=== PATIENT | male | born 1990 | race Caucasian/White ===

== ENCOUNTER 2020-03-31 19:31 | Emergency (ER) | payer SELFPAY | END 2020-03-31 19:45 | disposition left against medical advice (07) | LOC: EXPCOLL 19:37 | PROVIDERS: Emergency Provider Nurse Practitioner Family | DX: Z53.21 Procedure and treatment not carried out due to patient leaving prior to being seen by health care provider (principal) | CPT/HCPCS: 99199 ==

== ENCOUNTER 2024-10-20 15:59 | Emergency (ER) | payer OTHER, SELFPAY ==
--- OUTSIDE RECORDS SUMMARY | 2024-10-20 16:04 | XMS_ITS | Encounter Summary ---
Author Organization [facility] Care Team Providers Care Shipping Supervisor Name Role Phone Dona Laughlin Primary Care Provider [phone] Keenan Esquivel MD Unavailable [phone] Encounter Details Date Type Department Care Team (Latest Contact Info) Description 07/05/2015 Orders Only [facility] CLINCONV Provider, MD Amanda [address] [place] [id number] Social History Tobacco Use Types Packs/Day Years Used Date Smoking Tobacco: Never Assessed Sex and Gender Information Value Date Recorded Sex Assigned at Not on file Legal Sex Male 10:45 AM CDT Gender Identity Not on file Sexual Orientation Not on file documented as of this encounter Plan of Treatment Not on file documented as of this encounter Procedures Procedure Name Priority Date/Time Associated Diagnosis Comments PROCEDURE - RESULT 07/06/2015 12 :00 AM CDT documented in this encounter Results * PROCEDURE - RESULT (07/06/2015 12:00 AM CDT) Narrative 07/06/2015 12:00 AM CDT Ordered by an unspecified provider. Historical Provider Final Res ult documented in this encounter Visit Diagnoses Not on filedocumented in this encounter Additional Health Concerns Infection Onset Date Last Indicated Resolved Time MRSA 06/30/2015 06/29/2015 10/27/2020 5:00 AM CDT documented as of this encounter Care Teams Shipping Supervisor Relationship Specialty Start Date End Date Dona Laughlin PA [address] [place] [address] PCP - General 06/13/17 Keenan Esquivel MD [address] [facility] [place] [address] Surgeon Orthopedic Surgery 08/22/17 documented as of this encounter
--- OUTSIDE RECORDS SUMMARY | 2024-10-20 16:04 | XMS_ITS | Clinical Summary ---
Author Organization [facility] Address [address] [place] [address] Care Team Providers Care Wildlife Technician Name Role Phone Dona Laughlin Primary Care Provider [phone] Allergies Active Allergy Reactions Criticality Noted Date Comments Thiamine Unknown 03/31/2020 Vitamin B12 Anaphylaxis High 08/11/2017 Medications divalproex EC 125 MG tabletIndication s:TOTAL OF 1000MG AT BEDTIME Take 250 mg by mouth nightly. Indications: TOTAL OF 1000MG AT BEDTIME Active FLUoxetine (PROZAC) 20 MG capsule Take 25 mg by mouth nightly. Active diclofenac EC 50 MG tablet Take 50 mg by mouth nightly. Active ibuprofen 200 MG tablet Take 800 mg by mouth. Active NON FORMULARYIndicat ions:ON GABABAPENTIN NOT SURE OF DOSAGE. Indications: ON GABABAPENTIN NOT SURE OF DOSAGE. Active Active Problems Problem Noted Date Diagnosed Date Facet arthropathy, 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 Cervical radiculopathy 12/13/2020 Family History Medical History Relation Comments HEART MURMUR Mother Heart Disease Mother Relation Status Comments Mother Alive Sister Alive Social History Tobacco Use Types Packs/Day Years Used Date Smoking Tobacco: Never Smokeless Tobacco: Never Alcohol Use Standard Drinks/Week Comments Yes 0 (1 standard drink = 0.6 oz pur e alcohol) SOCIALLY Education Answer Date Recorded What is the highest level of school you have completed or the highest degree you have received? 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 Gender Identity Not on file Sexual Orientation Not on file Last Filed Vital Signs Vital Sign Reading Time Taken Comments Blood Pressure 100/58 06/02/2021 9:41 AM CDT Pulse 75 06/02/2021 9:41 AM CDT Temperature 36.7 C (98 F) 06/02/2021 9:41 AM CDT Respiratory Rate 20 06/02/2021 10:09 AM CDT Oxygen Saturation 100% 06/02/2021 9:41 AM CDT Inhaled Oxygen Concentration - - Weight 81.6 kg (180 lb) 06/02/2021 9:46 AM CDT Height 170.2 cm (5' 7) 06/02/2021 9:46 AM CDT Body Mass Index 28.19 06/02/2021 9:46 AM CDT Plan of Treatment Health Maintenance Due Date Last Done Comments Annual Physical 1992 Hepatitis C 07/18/2007 DTaP, Tdap and Td Vaccines (1 - Tdap) 2008 11/29/1993, 04/02/1991, 06/10/1990, Additional history exists Hepatitis B Vaccines (1 of 3 - 19+ 3-dose series) 2008 HPV Vaccines (1 - 3-dose SCDM series) 2016 COVID-19 Vaccine ( - 2023- season) 2023 Meningococcal B Vaccine Aged Out No l onger eligible based on patient's age to complete this topic Meningococcal Vaccine Aged Out No sherron jeannette eligible based on patient's age to complete this topic Pneumococcal Vaccine: Pediatrics (0 to 5 Years) and At-Risk Patients (6 to 49 Years) Aged Out No longer eligible based on patient's age to complete this topic RSV Immunizations Under 20 Months Aged Out No longer eligible based on patient's age to complete this topic Insurance [facility] Care Teams Wildlife Technician Relationship Specialty Start Date End Date Dona Laughlin PA [address] [place] [address] PCP - General PHYSICIAN ENGINEER SYSTEMS 06/02/21
--- OUTSIDE RECORDS SUMMARY | 2024-10-20 16:04 | XMS_ITS | Clinical Summary ---
Author Organization [facility] Address [address] [place] [address] Care Team Providers Care Auto Body Detailer Name Role Phone Unavailable Primary Care Provider Unavailabl e Source Comments [facility],non-owned Affiliates and Associated Physician Practices is amultiple site organization consisting of ambulatory clinics and hospital sitesin [place], [place], [place] and [place]. This disclosure is being madepursuant to the Care Everywhere program and may not contain all information available regarding this patient. Last updated 17.[facility] Arden Reed Allergies Active Allergy Reactions Criticality Noted Date Comments Cyanocobalamin Unknown 07/08/2015 Thiamine Swelling,Unknown Medium 06/30/2015 Swelling Vitamin B12 Anaphylaxis High 07/08/2015 Medications * Be aware that medications may not be up to date on this document. Alwaysverify current medications with the patient. ibuprofen (MOTRIN) 200 MG tablet Take 2 (two) tablets to 4 (four) tablets by mouth every 6 hours as needed Active FLUoxetine, pmdd, (SARAFEM) 20 MG tablet Take 3 (three) tablets by mouth at bedtime Active divalproex ER 24hr (DEPAKOTE ER) 250 MG tablet Take 1 (one) tablet by mouth once daily 1 Active diclofenac sodium EC (VOLTAREN) 50 MG tablet Take 1 (one) tablet by mouth 2 times daily 1 Active prochlorperazi ne (COMPAZINE) 5 MG tablet Take 1 (one) tablet by mouth every 8 hours as needed 2 Active propranolol CR 24hr (INDERAL LA) 60 MG capsule Take 1 (one) capsule by mouth once daily 2 Active tadalafil (CIALIS) 10 MG tablet Take 1 (one) tablet by mouth once daily as needed 2 Active valACYclovir (VALTREX) 1 GM tablet Take 1 (one) tablet by mouth once daily 1 Active acetaminophen (TYLENOL) 500 MG tablet Take 2 (two) tablets by mouth every 8 hours Maximum allowable Acetaminophen amount = 4 Grams (4000 mg) / 24 hours. 30 tablet 2 2 Active Additional Information Patient taking differently: 500-1,000 mgOralEVERY 6 HOURS PRN, Maximum allowable Acetaminophen amount = 4 Grams (4000 mg) / 24 hours., Reported on 06/09/2022 oxyCODONE, immediate release, (ROXICODONE) 5 MG tablet Take 1 (one) tablet by mouth every 6 hours as needed for Pain 30 tablet 2 Active polyethylene glycol 3350 (MIRALAX) 17 GM/SCOOP powder Take 17 (seventeen) g by mouth once daily 238 g 2 Active Additional Information Patient taking differently:17 g OralDAILY PRN, Reported on 03/17/2022 senna (SENOKOT) 8.6 MG tablet Take 1 (one) tablet by mouth once daily 14 tablet 2 Active ondansetron, disintegrating , (ZOFRAN ODT) 4 MG tablet Take 1 (one) tablet by mouth every 6 hours as needed for Nausea/Vomiting Allow tablet to dissolve on the tongue 12 tablet 2 Active oxybutynin CR 24hr (Ditropan-XL) 5 MG tablet Take 1 (one) tablet by mouth at bedtime 2 Active FLUoxetine (PROzac) 20 MG capsule Take 1 (one) capsule by mouth once daily 2 Active albuterol HFA (Proventil; Ventolin; Proair) 108 (90 Base) MCG/ACT inhaler Inhale 2 (two) puffs by mouth every 6 hours as needed 2 Active risperiDONE (RisperDAL) 1 MG tablet Take 1 (one) tablet by mouth once daily 3 Active QUEtiapine (SEROquel) 50 MG tablet Take 1 (one) tablet by mouth as directed 3 Active lidocaine (Xylocaine) 5 % ointment Apply 1 Each to affected area 2 times daily 3 Active carboxymethylc ellulose sodium 0.5 % ophthalmic solution Instill 1 (one) drop into both eyes 4 times daily as needed 3 Active capsaicin (Zostrix-Hp) 0.075 % cream Apply 1 applicatorful to affected area 4 times daily 3 Active Active Problems Problem Noted Date Diagnosed Date Cocaine use, unspecified wit h unspecified cocaine-induced disorder 06/09/2022 Unspecified disorder of refraction 06/09/2022 Chronic post-traumatic stress disorder Cervicalgia 03/17/2022 Bipolar II disorder 03/17/2022 Anxiety reaction 03/17/2022 Adjustment disorder 03/17/2022 Chronic alcohol abuse 03/17/2022 Post-traumatic stress disorder, chronic 03/17/19 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 03/17/2022 Cocaine abuse 03/17/2022 Backache 03/17/2022 Common cold 03/17/2022 Coccydynia 03/17/2022 Other spontaneous disruption of anterior cruciate ligament of left knee 03/17/2022 Contact with and (suspected) exposure to other hazardous substances 03/17/2022 Deferred diagnosis on axis I 03/17/2022 Derangement of posterior hor n of medial meniscus due to old tear or injury, left knee 03/17/2022 Orthopedic aftercare 03/17/2022 Derangement of posterior hor n of lateral meniscus of left knee 03/17/2022 Encounter for fitting and ad justment of other specified devices 03/17/2022 Health examination of defined subpopulation 08/2022 Health examination of defined subpopulation 08/2022 Other specified counseling 03/17/2022 Encounter for counseling 03/17/2022 Encounter for occupational history and physical examination 03/17/2022 Erectile dysfunction 03/17/2022 Counseling on injury prevention 03/17/2022 Other specified rehabilitation procedure 023 Exposure to potentially hazardous substance 08/2022 Overview (03/17/2022): Dec 15, 2020 Entered By: PABLO BUCKLEY Comment: has completed [place] environmental registry and ABH/Burn Pit exams 12/15/20 Exposure to STD 03/17/2022 Pain in left shoulder 03/17/2022 Hand pain 03/17/2022 Herpes simplex virus (HSV) infection 03/17/2022 History of alcoholism 03/17/2022 Overview (06/11/2024): IMO 06/11/2024 Hyperirritable mood 03/17/2022 Legal problem 03/17/2022 Major depression 03/17/2022 Migraine without aura, not i ntractable, without status migrainosus 03/17/2022 Nosophobia 03/17/2022 Occupational disorder 03/17/2022 Migraine without aura, intra ctable, without status migrainosus 03/17/2022 Migraine 03/17/2022 Condition influencing health status 03/17/2022 Insomnia, unspecified 03/17/2022 Insomnia 03/17/2022 Hypersomnia 03/17/2022 Other hypersomnia 03/17/2022 Other examination of ears and hearing 03/17/2022 Other specified personal ris k factors, not elsewhere classified 03/17/2022 Other instability, unspecified shoulder 03/17/19 23 Arthralgia of knee 03/17/2022 Pain in unspecified knee 03/17/2022 Otitis media 03/17/2022 Arthralgia of left knee 03/17/2022 Arthropathy of knee 03/17/2022 Instability of knee joint 03/17/2022 Patellofemoral syndrome 03/17/2022 Refractive error 03/17/2022 Screening examination for pulmonary tuberculosis 03/17/2022 Sleep apnea, unspecified 03/17/2022 Other diseases of nasal cavity and sinuses 03/17 Sore throat 03/17/2022 Sprain of left knee 03/17/2022 Unspecified injury of left w rist, hand and finger(s), initial encounter 03/17/2022 Facet arthropathy, 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 Cervical radiculopathy 12/13/2020 Closed displaced fracture of middle phalanx of left middle finger with malunion 08/22/2017 Resolved Problems Problem Noted Date Diagnosed Date Resolved Date Conjunctivitis of both eyes 03/17/2022 03/31/2022 Diarrhea 03/17/2022 04/14/2022 Cough 03/17/2022 04/14/2022 Immunizations Immunization Administration Dates Next Due ANTHRAX, HISTORIC VACCINE 08/06/2010,02/09/2010, 10/01/2009 FLU VACCINE TRI IIV3 SPLIT P F IM (FLUVIRIN) 03/31/2016 HEP A VACCINE, ADULT 07/19/2009,01/04/2009 Human Papilloma Virus Haily valent Vaccine 05/07/2012 INFLUENZA A [id number] VACCINE 01/31/2009 INFLUENZA VACCINE 11/30/2011, 2,01/16/2011,01/04 INFLUENZA VACCINE, QUADR. (A FLURIA, FLUZONE QUADRIVALENT; 6MO+) (IIV4) 01/10/2010 MODESTO VACCINE QUAD LAIV4 PF NASAL 11/12/2012 MENINGOCOCCAL ACWY (MCV4P) VAC IM 01/04/2009 MMR 07/19/2009,01/04/2009 PNEUMOCOCCAL PPSV23 07/08/2015 POLIO IPV 01/04/2009 SMALLPOX (VACCINIA) VACCINE, LIVE 10/01/2009 TDAP (7yrs+) 07/29/2021,01/04/2009 TYPHOID IM 08/25/2009 VARICELLA 02/18/2009,01/04/2009 Social History Tobacco Use Types Packs/Day Years Used Date Smoking Tobacco: Never Smokeless Tobacco: Never Alcohol Use Standard Drinks/Week Comments Yes 0 (1 standard drink = 0.6 oz pur e alcohol) socially AUDIT-C Answer Date Recorded Q1: How often do you have a drink containing alcohol? Never 09/20/2021 Q2: How many drinks containi ng alcohol do you have on a typical day when you are drinking? Patient does not drink Q3: How often do you have si x or more drinks on one occasion? 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 Gender Identity Not on file Sexual Orientation Not on file Last Filed Vital Signs Vital Sign Reading Time Taken Comments Blood Pressure 120/86 09/20/2021 11:55 AM CDT Pulse 64 09/20/2021 11:55 AM CDT Temperature 36.1 C (97 F) 09/20/2021 11:00 AM CDT Respiratory Rate 14 09/20/2021 11:35 AM CDT Oxygen Saturation 99% 09/20/2021 11:55 AM CDT Inhaled Oxygen Concentration 21% 09/20/2021 6 :54 AM CDT Weight 80.7 kg (178 lb) 03/17/2022 1:10 PM PARTNERSHIP MANAGER Height 170.2 cm (5' 7) 03/17/2022 1:10 PM PARTNERSHIP MANAGER Body Mass Index 27.88 03/17/2022 1:10 PM PARTNERSHIP MANAGER Plan of Treatment Health Maintenance Due Date Last Done Comments HIV SCREENING 2004 HEPATITIS C SCREENING 07/13/2007 HEPATITIS B VACCINE (1 of 3 - 19+ 3-dose series) 2008 HPV VACCINE (2 - Male 3-dose series) 06/04/2012 05/07/2012 COVID-19 VACCINE (1 - season) 2023 INFLUENZA VACCINE (#1) 2024 7, 11/12/2012, 11/30/2011, Additional history exists DTAP/TDAP/TD VACCINES (3 - Td or Tdap) 07/30/2031 07/29/2021, 01/04/2009 ZOSTER VACCINE (1 of 2) 07/18/2039 MENINGOCOCCAL GROUPS A/C/Y/W VACCINE Aged Out 01/04/2009 No longer eligible based on patient's age to complete this topic PNEUMOCOCCAL VACCINE Aged Out 07/08/2015 No long er eligible based on patient's age to complete this topic HIB VACCINE Aged Out No longer eligi ble based on patient's age to complete this topic MENINGOCOCCAL (Group B) VACCINE SHARED DECISION-MAKING Aged Out No longer eligible based on patient's age to complete this topic Medical Devices Implanted Type Area Academic Support Director Device Identifier Shelf Expiration Date Model / Serial / Lot [place] Sut Swivelock Tenodesis 8mm Bcmps Implanted:Qty: 1 on 09/20/2021 by Casandra Braun MD at [facility] Left: Shoulder [employer] 01/09/2025 [id number] -[id number] / / [id number] [place] Sut Fibertak Fbrwr Kntls Corls 2 Implanted:Qty: 3 on 09/20/2021 by Casandra Braun MD at [facility] Left: Shoulder [employer] 12/09/2025 AR-[id number] / / [id number] Kit Arthsc Fx Crv Spr Disp Implanted:Qty: 1 on 09/20/2021 by Casandra Braun MD at [facility] Left: Shoulder [employer] 04/11/2026 [id number]-[id number] / / [id number] Insurance [facility]
--- OUTSIDE RECORDS SUMMARY | 2024-10-20 16:04 | XMS_ITS | Clinical Summary ---
Author Organization [facility] Address [address] [place] [address] Care Team Providers Care Monitoring Tech Name Role Phone Dona Laughlin Primary Care Provider Keenan Esquivel MD Unavailable [phone] Allergies Active Allergy Reactions Criticality Noted Date Comments Thiamine (Vitamin B1) Swelling,Unknown Medium 06/30/19 16 Swelling Vitamin [id number] B1 Anaphylaxis High 08/11/2017 Medications FLUoxetine (PROzac) 20 mg tablet Take 60 mg by mouth nightly. Active ibuprofen (ibuprofen) 200 mg tab/cap Take 800 mg by mouth 4 (four) times a day as needed. Active divalproex ER (DEPAKOTE ER) 250 mg 24 hr tablet Take 750 mg by mouth nightly. Active HYDROcodone-acet aminophen (NORCO) 5-325 mg per tabletIndication s:Pain 1-2 tab every 4-6 hours as needed for pain 20 tablet 08/16/2017 Active Active Problems Problem Noted Date Diagnosed Date Closed displaced fracture of middle phalanx of left middle finger with malunion 08/22/2017 Surgical History Surgery Date Site/Laterality Comments ANTERIOR CRUCIATE LIGAMENT REPAIR Left KNEE ARTHROSCOPY Left Medical History Medical History Date Comments Depressed Marijuana dependence daily Bipolar disorder Social History Tobacco Use Types Packs/Day Years Used Date Smoking Tobacco: Never Smokeless Tobacco: Never Alcohol Use Standard Drinks/Week Comments Yes 0 (1 standard drink = 0.6 oz pure alcohol) h/ alcohol abuse--sober X 1 year Sex and Gender Information Value Date Recorded Sex Assigned at Not on file Legal Sex Male 10:45 AM CDT Gender Identity Not on file Sexual Orientation Not on file Obstetrics History Last Filed Vital Signs Vital Sign Reading Time Taken Comments Blood Pressure 124/83 08/16/2017 12:55 PM CDT Pulse 66 08/16/2017 12:55 PM CDT Temperature 36.2 C (97.2 F) 08/16/2017 12:14 PM CDT Respiratory Rate 15 08/16/2017 12:55 PM CDT Oxygen Saturation 96% 08/16/2017 12:55 PM CDT Inhaled Oxygen Concentration - - Weight 81.6 kg (180 lb) 04/10/2019 2:26 PM WAFER POLISHER Height 170.2 cm (5' 7) 04/10/2019 2:26 PM WAFER POLISHER Body Mass Index 28.19 04/10/2019 2:26 PM WAFER POLISHER Plan of Treatment Not on file Medical Devices Implanted Type Area Lead Blender Device Identifier Shelf Expiration Date Model / Serial / Lot Screw Screw Left: Knee Insurance [facility] Care Teams Monitoring Tech Relationship Specialty Start Date End Date Dona Laughlin PA [address] [place] [address] PCP - General 06/13/17 Keenan Esquivel MD [address] [place] [address] Surgeon Orthopedic Surgery 08/22/17
--- OUTSIDE RECORDS SUMMARY | 2024-10-20 16:04 | XMS_ITS | Encounter Summary ---
Author Organization [facility] Address [address] [place] [address] Care Team Providers Care Web Marketing Specialist Name Role Phone None, Provider MD Primary Care Provider Unavaila ble None, Provider Primary Care Provider Unavaila ble Dona Laughlin Primary Care Provider [phone] Reason for Referral * Surgical (Routine) - Closed Specialty Diagnoses / Procedures Referred By Ariela santizo Referred To Contact Procedures Case request operating room: BLOCK MEDIAL BRANCH CERVICAL C4, C5, C6 Claudia Yeh NP [address] [facility] [address] [place] [address] Phone: tel: [phone] fax: Referral ID Status Reason Start Date Expiration Date Visits Re quested Visits Authorized [id number] Closed 03/25/2021 04/25/2022 1 1 R SUPERVISOR Encounter Details Date Type Department Care Team (Late st Contact Info) Description 03/25/2021 Prep for Procedure [facility] [place] [address] [phone] Claudia Yeh NP [address] [facility] [address] [place] [phone] (Work) Social History Tobacco Use Types Packs/Day Years [...] on file Legal Sex Male 8:44 PM LABOR SUPERVISOR Gender Identity Not on file Sexual Orientation Not on file COVID-19 Exposure Response Date Recorded In the last month, have you been in contact with someone who was confirmed or suspected to have Coronavirus / COVID-19? No / Unsure 03/25/2021 9:31 AM LABOR SUPERVISOR documented as of this encounter Functional Status * Calculated C-SSRS Risk Score (Lifetime/Recent) Answer Date of Assessment Author Status No Risk Indicated 03/25/2021 9:40 AM LABOR SUPERVISOR Kacie Whitt i, RN Active * [place] Suicide Severity Rating Scale (Screener/Recent Self-Report) Question Answer Date of Assessment Author Status 1. Wish to be (Past 1 Month) No 03/25/2021 9:40 AM LABOR SUPERVISOR Isreal Whitt RN Acti ve 2. Non-Specific Active Suicidal Thoughts (Past 1 Month) No 03/25/2021 9:40 AM LABOR SUPERVISOR Isreal Whitt RN Acti ve 6. Suicidal Behavior (Lifetime) No 03/25/2021 9:40 AM LABOR SUPERVISOR Isreal Whitt RN Acti ve documented as of this encounter Plan of Treatment Scheduled Orders Name Type Priority Associated Diagnoses Orde r Schedule Case request operating room: BLOCK MEDIAL BRANCH CERVICAL C4, C5, C6 Case Request Routine Once for 1 O ccurrences starting 03/25/2021 until 03/25/2021 documented as of this encounter Visit Diagnoses Not on filedocumented in this encounter Care Teams Web Marketing Specialist Relationship Specialty Start Date End Date None, Provider, PCP - General 12/13/20 05/10/21 None, Provider, PCP - General 05/11/21 06/01/21 Dona Laughlin PA [address] [place] [address] PCP - General PHYSICIAN [employer] SALES REPRESENTATIVE 06/02/21 documented as of this encounter
--- OUTSIDE RECORDS SUMMARY | 2024-10-20 16:04 | XMS_ITS | Patient Health Record ---
Author Organization [facility] Address [address] [facility] [address] [place] [address] Care Team Providers Care Mine Inspector Name Role Phone Gonzalo Medellin Unavailable [phone] Reason For Referral No Information Medications Medication SIG (Take, Route, Frequency, Duration) Notes Start Date End Date Status Ferrous Sulfate 325 (65 Fe) MG Oral 06/04/2023 Active Lidocaine 5% External 06/04/2023 Active Divalproex Sodium 250 MG Oral 06/04/2023 Active Wellbutrin XL 300 MG Oral 06/04/2023 Active TADALAFIL 10 MG TABLET *Reorder from Navagis for eRx and Interaction Alerts* 06/04/2023 Active Vitamin C 250 mg Oral 06/04/2023 Ac tive QUEtiapine Fumarate 100 MG Oral 06/04/2023 Active Spravato (84 MG Dose) 28 MG/DEVICE Nasal 06/04/2023 Active oxyBUTYnin Chloride 5 MG Oral 06/04/2023 Active FLUoxetine HCl 20 MG Oral 06/04/2023 Active Nitrofurantoin Monohyd Macro 100 MG Oral 06/04/2023 Active Esketamine HCl (84 MG Dose) 28 MG/DEVICE Nasal 06/04/2023 Active Plan Of Treatment No Information Medical (General) History Surgical History Surgery Date(Month/Year) Other 09/20/2021
[2024-10-20 16:19] VITALS: BP 96/79; PULSE 65; RESP 18; TEMP 36.3; O2SAT 100
--- NOTE | 2024-10-20 16:31 | ED_ITS ---
HPI - Wound/Laceration General Chief Complaint: Wound/Laceration Stated Complaint: wound laceration Time Seen by Provider: 10/20/24 16:01 Source: patient Mode of arrival: ambulatory Limitations: no limitations History of Present Illness HPI narrative: Patient is a 34-year-old male that presents with laceration to left webbing between thumb and index finger. Patient states he accidentally cut himself with a box car loader. Tetanus shot unknown. Happened 20 minutes prior to arrival Related Data Home Medications ?Medication ?Instructions ?Recorded ?Confirmed ?Last Taken ?Type bupropion HCl 100 mg tablet 100 mg PO DAILY 10/20/24 10/20/24 Unknown History lithium carbonate 300 mg capsule 300 mg PO DAILY 10/20/24 10/20/24 Unknown History propranolol 60 mg capsule,24 60 mg PO DAILY 10/20/24 10/20/24 Unknown History hr,extended release (Inderal [place]) Allergies Allergy/AdvReac Type Severity Reaction Status Date / Time No Known Allergies Allergy Unverified 10/04/14 15:50 Review of Systems 2 Review of Systems: All systems reviewed & are unremarkable except as noted in HPI and below Constitutional: Constitutional: Denies body ache(s), Denies chills, Denies fatigue, Denies fever(s), Denies headache(s), Denies malaise and Denies weakness Eyes: Eyes: Denies blurry vision, Denies irritation and Denies loss of vision ENT: Denies otalgia, Denies headache(s), Denies nasal discharge, Denies sinus pain and Denies sore throat Cardiovascular: Cardiovascular: Denies chest pain, Denies irregular heart rhythm and Denies dyspnea Respiratory: Respiratory: Denies dyspnea Gastrointestinal: Gastrointestinal: Denies abdominal pain, Denies melena, Denies hematochezia, Denies diarrhea, Denies nausea and Denies vomiting Musculoskeletal: Musculoskeletal: Denies back pain, Denies myalgias and Denies arthralgias Integumentary/Breasts: Skin/Breast: Denies pruritus, Denies rash and Reports wounds Neurologic: Denies headache(s), Denies loss of vision and Denies weakness Psychiatric: Psychiatric: Reports no additional psychiatric complaints Endocrine: Endocrine: Denies fatigue PMFSH Past Medical History Medical History Arthritis of left glenohumeral joint Left shoulder pain Seasonal allergies Asthma Family History Family History Other Cerebrovascular accident Heart disease Hypertension Social History Social History Alcohol intake: never Substance use: current Substance use type: marijuana Comments At time of signature, agree with nursing past medical, surgical, social and family history. There is no relevant family history pertinent to the presenting complaint. Exam 2 Const: General: cooperative, healthy appearing, comfortable, no acute distress and well nourished Nutritional Appearance: well nourished O rientation/consciousness: patient oriented x3 Limitations: no limitations HENMT: Head: normal to inspection, normocephalic and atraumatic Ears: h earing grossly normal bilaterally and external ears normal Face/Nose/Sinus: N ormal external nose present, normal facial exam and face symmetric Face and sinus: normal facial exam and face symmetric Mouth: Yes lip normal Eyes: General: appearance normal, both eyes and all related structures A lignment and Position: alignment normal and position normal Periorbital: p eriorbital findings normal Eyelids: eyelids normal Pupils: Equal, round and reactive pupils present EOM: EOMs intact bilaterally Neck: Neck: normal visual inspection, full ROM and supple Chest: Chest palpation & inspection: normal inspection of the chest Resp: Effort & Inspection: normal respiratory effort and able to speak in complete sentences Auscultation: clear to auscultation bilaterally Cardio: Rate: regular rate Rhythm: regular rhythm Heart sounds: S1 normal heart sound present and S2 normal heart sound present GI: Inspection: normal to inspection Skin: General skin exam: normal color and no rashes or lesions noted T rauma: laceration left hand linear, involves subcutaneous tissue, motor nerve function intact and sensation intact Neuro: General: patient oriented x3 and moves all extremities Cranial nerves: Yes Equal, round and reactive pupils present Speech: normal speech Gait exam (Neuro): Normal gait present Extrem: General: normal to inspection, full ROM and no edema Left upper extremity: hand normal capillary refill, neuromotor exam normal, tendon exam normal, vascular exam radial pulse present and normal capillary refill, normal ROM of fingers and no swelling; no tenderness and no unusual warmth Hand/finger images: 1. 2 cm linear laceration Psych: Appearance: grossly normal and well kempt Mental Status: mental status grossly normal Speech and movement: Normal speech and movement present Affect: normal affect Attitude: cooperative Thought process: Normal thought process present Course Course Emergency Course: Patient is aware of diagnosis, understands and agrees to treatment plan. Anticipatory guidance given. Patient agrees to follow-up as directed and is aware of reasons to seek care at the emergency department. Portions of this record may have been created with voice recognition software Level of Care: Express Care Visit Vital Signs Vital signs: Vital Signs Temperature 36.3 C L 10/20/24 16:19 Pulse Rate 65 10/20/24 16:19 Respiratory Rate 18 10/20/24 16:19 Blood Pressure 96/79 L 10/20/24 16:19 Pulse Oximetry 100 10/20/24 16:19 Oxygen Delivery Room Air 10/20/24 16:19 Temperature 36.3 C L 10/20/24 16:19 Pulse Rate 65 10/20/24 16:19 Respiratory Rate 18 10/20/24 16:19 Blood Pressure 96/79 L 10/20/24 16:19 Pulse Oximetry 100 10/20/24 16:19 Oxygen Delivery Room Air 10/20/24 16:19 Reviewed Procedures Laceration Laceration 1: Date: 10/20/24 Time: 17:00 Site: hand Side (If applicable): left Size (cm): 2 Description: linear Depth: simple, single layer Local Anesthetic: lidocaine 1% Amount of anesthesia used (mL): 4 Pre-repair: wound explored and irrigated extensively ====== Skin Level ====== Skin layer closed with: vicryl Size (cm): 4-0 Number of sutures: 4 Technique: simple, interrupted ====== Subcutaneous Layer ====== ====== Muscle Layer ====== ====== Tendon Layer ====== Dressing: Procedure explained to patient. Verbal consent obtained. Patient tolerated well. Wound is now well approximated MDM - Wound/Laceration MDM Narrative Medical decision making narrative: Wound explored for foreign body and copious irrigation provided with no evidence of FB. The laceration was identified to be 2 cm in length and located at left thumb webbing. The laceration was cleansed with wound furniture cleaner and no debris was noted. Local anesthesia was obtained by injecting 1% lidocaine at the laceration site. The laceration was then irrigated with 300cc of high-pressure irrigation. The wound was explored and no foreign bodies were found. There was no evidence of tendon or nerve lacerations. The wound was closed with 4.0 suture type, 4 suture, and technique interrupted. A sterile dressing was then applied and anticipatory guidance was provided. Tetanus prophylaxis was given Pt well hydrated appearing, in no respiratory distress, hemodynamically stable. Recommend supportive care. The patient is stable at time of discharge the clinical impression was discussed and the patient was given the opportunity to ask questions, which were addressed as completely as possible given the information available at present. Anticipatory guidance and return to care precautions were discussed and the importance of primary care follow-up was stressed and encouraged. The patient voiced understanding of the plan, indications to return, and the need for follow-up. Patient is appropriate for outpatient treatment and follow-up. Differential Diagnosis Differential diagnosis: Likely laceration and avulsion of skin Medical Records Attestation: I reviewed the patient's medical records. Discharge Plan Discharge Clinical Impression: Laceration Patient Disposition: Home Condition: Stable Instructions: Laceration (ED) Additional Instructions: Keep wound clean, and dry. Apply antibiotic ointment twice daily. Cover with bandage as needed to prevent contamination. Clean with soap and water twice daily, but do not soak, take baths, or swim until wound is completely healed. Do not clean with hydrogen peroxide. If any signs of infection such as redness, swelling, increasing pain, drainage of purulent discharge, streaks up your extremity develop, seek medical attention immediately. Followup with your primary care provider in [10-14] days for suture removal. After sutures are removed, keep your scar out of the sun. You may use OTC silicone pad and/or scar massage with ointment (for 10-15 min a day) after one month. Talk to your doctor if you think you aredeveloping a keloid. Patient Language: Japanese Prescriptions: No Action No Home Medications Follow-up/Referrals: [facility] [Primary Care Provider] - 2 Weeks Stand Alone Forms: Work/School Release IP Time of Disposition: 17:15
[2024-10-20] MEDS: LIDOCAINE 1% LOCAL INJ 2 ML AMPUL 4 ML INFILTRATE (16:35)
[2024-10-20] MEDS: TETANUS,DIPHTHERIA,AC PERTUSSIS ADULT (0.5 ML) BOOSTRIX IM (16:35)
[2024-10-20 17:20] VITALS: BP 116/82; PULSE 78
== END 2024-10-20 17:20 | disposition home or self-care (01) ==
PROVIDERS: Emergency Provider Nurse Practitioner Family
DX: S61.412A Laceration without foreign body of left hand, initial encounter (principal); W27.8XXA Contact with other nonpowered hand tool, initial encounter; Z23 Encounter for immunization; F12.90 Cannabis use, unspecified, uncomplicated; J45.909 Unspecified asthma, uncomplicated; M19.012 Primary osteoarthritis, left shoulder
CPT/HCPCS: 12001; 90471; 90715; 99212; G0463; J2003